=== PATIENT | female | born 1945 | race Caucasian/White ===

== ENCOUNTER 2016-11-09 20:40 | Emergency (ER) | payer MEDICARE ==
[~2016-11-09] VITALS: Ht 162.6 cm; Wt 79.7 kg
[2016-11-09 20:55] VITALS: Ht 162.6 cm; Wt 79.7 kg
--- NOTE | 2016-11-09 21:07 | ERPDOC ---
Departure Disposition Decision Date: November 10, 2016 Disposition Decision Time: 23:45 Disposition: 01 DISCHARGED HOME, SELF-CARE Impression Impression Impression: Primary Impression: Dizziness Additional Impressions: UTI (urinary tract infection) Urinary tract infection type: acute cystitis Hematuria presence: without hematuria Qualified Codes: N30.00 - Acute cystitis without hematuria Volume depletion Severity: Moderate Condition: Improved Seen By: Mid-level only Patient Instructions: Dizziness (ED), Urinary Tract Infection in Women (ED) Problems/Meds/Labs Reviewed?: Yes Medications reviewed and manag: Yes Additional Instructions: Your EKG was normal. Your head CT did not show any acute finding. Your labs indicated mild volume depletion and a urinary tract infection. Take cephalexin 500mg three times daily for 7 days. Follow with with Dr. Fairchild if your symptoms persist or are not improving in the next 2 days. Stay well hydrated, drink water often. Follow treatment plan. Follow up care ordered?: Yes Mental Status: Alert, Oriented Scripts Cephalexin (Cephalexin) 500 Mg Tablet 1 TAB PO TID for 7 Days, #21 TAB Prov: ADRIÁN RAMIREZ APRN 11/10/16 HPI - General Medical General Chief Complaint: Dizzy Stated Complaint: DIZZY,CLAMY Time Seen by Provider: 20:52 Source: patient HPI - General Medical Initial Comments 71 YO F presents to ED with report of onset of feeling lightheaded and dizzy at 1730 today. Developed headache, nausea and felt clammy. Headache, nausea and clamminess have resolved. Patient says she was just sitting at the time of onset. Patient denies any accompanying symptoms (i.e. fever, chills, SOA, CP, vomiting, blurred vision, or ataxia). I asked patient if the room was spinning and initially she answered yes but them said she felt like she was spinning when she moved. Patient arrives hypertensive with BP 193/80. Patient denies any known sick contacts. Associated Symptoms: DENIES: chest pain, cough, diaphoresis, fever/chills, headaches, loss of appetite, malaise, nausea/vomiting, rash, seizure, shortness of breath, syncope, weakness Allergies: Coded Allergies: No Known Allergies (Unverified , 11/09/16) Past History Past Medical History Metabolic: diabetes (type II), hypercholesterolemia, hypertension Cardiac: DENIES: angina Respiratory: DENIES: asthma GI: DENIES: ulcers Female: DENIES: renal insufficiency Neurological: DENIES: seizures Musculoskeletal: DENIES: rheumatoid arthritis Psychological: DENIES: depression Family History Family PMH: FOUND: other (noncontributory) Social History Marital Status: Sexuality: male partner Household Members: spouse Review of Systems Constitutional Constitutional: dizziness, DENIES: chills, fever, weakness Eyes General: DENIES: erythema, exudate Lids/Accessories: DENIES: erythema, swelling Vision: DENIES: blurring ENMT Ears: DENIES: pain Sinuses: DENIES: congestion, rhinorrhea Mouth/Throat: DENIES: sore throat Cardiovascular Cardiac: DENIES: chest pain, murmur Rhythm/Rate: DENIES: palpitations Pulmonary Respiratory: DENIES: cough, dyspnea GI Upper Abdomen: DENIES: nausea, pain, vomiting Lower Abdomen: DENIES: blood in stool, diarrhea, pain General: DENIES: dysuria, pain Musculoskeletal General: DENIES: joint pain, pain, tenderness Integumentary Skin: DENIES: color change, itching, rash Neurological General: DENIES: ataxia, change in strength, numbness, paralysis/paresis, weakness Psychiatric Psychiatric: DENIES: anxiety, depression, nervousness Physical Exam General General Nourishment: well nourished, well developed, no acute distress, adult General Body Habitus: well groomed Vitals and Pain Weight: Kilograms: 79.700 Height (feet): 5 Height (inches): 4.00 Triage Pain Scale: Eyes (brief) Eyes Brief: found: EOMI, PERRL ENMT (brief) ENMT Brief: FOUND: TM clear, TM good light reflex, mucosa moist, NOT FOUND: nasal exudate, nasal swelling, pharnyx erythema Neck (brief) Neck: FOUND: trachea midline, NOT FOUND: adenopathy, spasm, tenderness, thyromegaly Respiratory (brief) Respiratory: FOUND: clear all parnell, equal bilaterally, symmetrical Cardiovascular (brief) Cardiac: FOUND: regular rate, regular rhythm Capillary Refill: <2 sec Pulses: all distal extremities, equal, strong Abdomen (brief) Abdominal Brief: FOUND: bowel normo active x4, soft, NOT FOUND: distended, tender Musculoskeletal (brief) Musculoskeletal Brief: NOT FOUND: deformity, tenderness Integumentary (brief) Integumentary Brief: FOUND: dry, pink, warm Neurologic (brief) Neurological Brief: FOUND: CN w/o gross def to obs, motor-no gross deficits, sensory-no gross deficits Psychiatric (brief) Psychiatric Brief: FOUND: alert, normal affect, oriented Differential Diagnoses Considering: CVA, Hypo/Hyperglycemia, Hypo/Hyperkalemia, Hypo/Hypernatremia, TIA, UTI Considering: Acute NH/Ischemia, Cardiac Dysrhythmia, Orthostatic Hypotension Progress Results/Orders Orders Procedure Category Date Status Time EKG EKG 11/09/16 Taken Cmp - Comprehensive LAB 11/09/16 Complete Metabolic 21:13 Cbc W/Auto LAB 11/09/16 Complete Diff-Reflex Manual 21:13 Troponin I W LAB 11/09/16 Complete Hemolysis Index 21:13 Iv Lock (Ed Only) EDM 11/09/16 Transmitted 21:13 Orthostatic Bp/Pulse EDM 11/09/16 Transmitted 21:13 Normal Saline (Normal PHA 11/09/16 Complete Saline Iv) 22:30 Ct Head W/O Contrast CT 11/09/16 Resulted UA, LAB 11/09/16 Complete Dip&Micro(Complete) & 23:27 Urine Culture MARIBEL 11/09/16 Complete 23:36 Cephalexin Capsule PHA 11/10/16 Complete (Keflex) 00:30 Lab Results Laboratory Tests Test 11/09/16 21:20 11/09/16 23:27 White Blood Count 10.3T/MM3 Red Blood Count 4.15M/MM3 Hemoglobin 11.5GM/DL Hematocrit 35.5% Mean Corpuscular Volume 85.5UM3 Mean Corpuscular Hemoglobin 27.7UUG Mean Corpuscular Hemoglobin Concent 32.4GM/DL RDW Standard Deviation 40.9FL Platelet Count 260T/MM3 Mean Platelet Volume 10.2UM3 Immature Granulocyte % (Auto) 0.1% Neutrophils (%) (Auto) 76.8% Lymphocytes (%) (Auto) 15.0% Monocytes (%) (Auto) 6.3% Eosinophils (%) (Auto) 1.5% Basophils (%) (Auto) 0.3% Absolute Immature Granulocyte (auto 0.01T/MM3 Absolute Neutrophils (auto) 7.9T/MM3 Absolute Lymphocytes (auto) 1.5T/MM3 Absolute Monocytes (auto) 0.7T/MM3 Absolute Eosinophils (auto) 0.2T/MM3 Absolute Basophils (auto) 0.0T/MM3 Turbidity < 20 Sodium Level 145MEQ/L Potassium Level 4.0MEQ/L Chloride Level 104MEQ/L Carbon Dioxide Level 26MEQ/L Anion Gap 15MEQ/L Blood Urea Nitrogen 20.0MG/DL Creatinine 0.9MG/DL Glomerular Filtration Rate Calc 62 BUN/Creatinine Ratio 22RATIO Glucose Level 184MG/DL Calculated Osmolality 287MOSM/KG Calcium Level 10.0MG/DL Total Bilirubin 0.70MG/DL Icterus Index < 2 Aspartate Amino Transf (AST/SGOT) 23U/L Alanine Aminotransferase (ALT/SGPT) 24U/L Alkaline Phosphatase 88U/L Troponin I < 0.012ng/ml Total Protein 7.2G/DL Albumin 4.3G/DL Globulin 2.9G/DL Albumin/Globulin Ratio 1.5RATIO Chemistry Specimen Hemolysis < 15 Urine Collection Type Voided-not cc-midstr Urine Color Yellow Urine Turbidity Clear Urine pH 6.0 Urine Specific [place] 1.010 Urine Protein Negative Urine Glucose (UA) Negative Urine Ketones Negative Urine Blood Negative Urine Nitrite Negative Urine Bilirubin Negative Urine Urobilinogen 0.2EU/DL Urine Leukocyte Esterase 3+ Urine RBC None seen/HPF Urine WBC 20-30/HPF Urine Bacteria None seen Urine Culture Indicated Cult reflexed &setup Medications Current ED Medications Sodium Chloride (Normal Saline IV) 1,000 ml @ 0 mls/hr Q0M ONCE IV Last administered on 11/09/16 22:27; Start 11/09/16 at 22:30; Stop 11/09/16 at 22:31 ; Status DC Cephalexin HCl (Keflex) 500 mg O ONCE PO Last administered on 11/10/16 00:32 ; Start 11/10/16 at 00:30; Stop 11/10/16 at 00:31; Status DC Progress Progress CBC unremarkable CMP unremarkable except for slight elevation in NA and BUN. Troponin < 0.012 UA has 3+ LE with 20-[address]-no acute findings Patient reports feeling "much better after fluids". No longer feeling lightheaded or dizzy. BP improving. I discussed labs, EKG and CT head with patient and her . Patient's symptoms consistent with volume depletion and UTI. I discussed treatment plan, follow up with PCP and return precautions which patient verbalized understanding. EKG EKG : Rate: 60-100 Rhythm: sinus [place]: normal QRS: normal Intervals: normal ST/T: normal Interpreted by: signing physician (Dr. Jackman) CT CT : CT: Head no contrast (no acute intracranial findings) Interpretation: Faxed Report ADRIÁN RAMIREZ APRN November 09, 2016 21:07
[2016-11-09 21:25] LABS: BASOPHILS % (AUTO) 0.3 % (0-2); EOSINOPHILS # (AUTO) 0.2 T/MM3 (0-0.5); EOSINOPHILS % (AUTO) 1.5 % (0-4); HCT - HEMATOCRIT 35.5 % (36-46); HGB - HEMOGLOBIN 11.5 GM/DL (12-16); IMMATURE GRANULOCYTE # (AUTO) 0.01 T/MM3 (0.00-0.03); IMMATURE GRANULOCYTE % (AUTO) 0.1 % (0.0-0.5); LYMPHOCYTES # (AUTO) 1.5 T/MM3 (1-4.8); MEAN CORPUSCULAR HGB 27.7 UUG (26-34); MEAN CORPUSCULAR HGB CONC(MCHC 32.4 GM/DL (31-37); MEAN CORPUSCULAR VOLUME 85.5 UM3 (80-100); MEAN PLATELET VOLUME 10.2 UM3 (9.4-12.4); MONOCYTES # (AUTO) 0.7 T/MM3 (0-0.8); MONOCYTES % (AUTO) 6.3 % (0-9.0); NEUTROPHILS #(AUTO)-ABSOLUTE 7.9 T/MM3 (1.8-7.7); NEUTROPHILS % (AUTO) 76.8 % (33-66); RED BLOOD COUNT 4.15 M/MM3 (4.00-5.20); WBC - WHITE BLOOD COUNT 10.3 T/MM3 (4.5-11.0)
[2016-11-09 22:10] LABS: ALBUMIN 4.3 G/DL (3.5-5.0); ALBUMIN/GLOBULIN RATIO 1.5 RATIO (1.1-2.2); ALKALINE PHOSPHATASE 88 U/L (38-126); ALT (SGPT) 24 U/L (9-52); ANION GAP 15 MEQ/L (5-15); AST (SGOT) 23 U/L (14-36); BUN/CREATININE RATIO 22 RATIO (6-26); CHLORIDE 104 MEQ/L (98-107); CO2 - CARBON DIOXIDE 26 MEQ/L (22-30); CREATININE 0.9 MG/DL (0.7-1.2); GLOMERULAR FILTRATION RATE 62; GLUCOSE 184 MG/DL (65-110); SODIUM 145 MEQ/L (134-144); TOTAL PROTEIN 7.2 G/DL (6.3-8.2)
[2016-11-09] MEDS ORDERED: NORMAL SALINE 1,000 ML IV ONE (22:30)
[2016-11-09] MEDS ORDERED: GLIM2TAB3 PO (22:52)
[2016-11-09] MEDS ORDERED: VIT1TABL PO (22:52)
[2016-11-09] MEDS ORDERED: VITA-321 PO (22:52)
[2016-11-09] MEDS ORDERED: ATOR20TA59 PO (22:52)
[2016-11-09] MEDS ORDERED: CALC-52 PO (22:52)
[2016-11-09 23:27] LABS: BLOOD, URINE NEGATIVE (NEGATIVE); COLOR,URINE YELLOW (YELLOW); LEUKOCYTE ESTERASE ,URINE 3+ (NEGATIVE); NITRITE,URINE NEGATIVE (NEGATIVE); UROBILINOGEN,URINE 0.2 EU/DL (NORMAL)
[2016-11-09 23:35] LABS: BACTERIA,URINE NONE SEEN (NEGATIVE); RBC,URINE NONE SEEN /HPF (0-3); WBC,URINE 20-30 /HPF (0-5)
[2016-11-10] MEDS ORDERED: CEPH500T PO (00:21)
[2016-11-10 00:30] VITALS: BP 156/65; PULSE 68; RESP 18; TEMP 98; O2SAT 97
[2016-11-10] MEDS ORDERED: CEPHALEXIN 500 MG CAPSULE PO ONE (00:30)
[2016-11-10] MEDS ORDERED: SITA1TBM PO (02:20)
--- NOTE | 2016-11-10 09:17 | DI ---
EXAM: CT HEAD W/O CONTRAST COMPARISON: None available. HISTORY: ITS.REASON: dizziness LOCATION OF DICTATION: [facility] [place]CHNIQUE: Without IV contrast, axial images were obtained through the brain and reviewed in brain, soft tissue, bone, and subdural windows. The current CT scan was performed using radiation dose-reduction techniques. FINDINGS: The CSF spaces are prominent likely related to atrophy in keeping with age. Periventricular deep white matter hypodensities are noted likely related to small vessel ischemic disease. The suprasellar cistern and quadrigeminal plate cisterns are intact. The dumont-white junctions are distinct. No sulcal effacement is identified. The basal ganglia, posterior fossa and brainstem region appear unremarkable. There is no evidence for midline shift or mass effect. The midline structures appear unremarkable. No osseous abnormalities are identified. The paranasal sinuses and mastoid air cells are clear. IMPRESSION: 1. Atrophy in keeping with age. 2. Periventricular deep white matter hypodensities are noted likely related to small vessel ischemic disease. NOTE: This study was reviewed via teleradiology by [facility] and a preliminary impression consistent with above findings was conveyed to the ordering clinician immediately after the exam. .
== END 2016-11-10 00:30 | disposition home or self-care (01) ==
LOC: ED 20:40
DX: R42 Dizziness and giddiness (principal); N30.00 Acute cystitis without hematuria; E86.9 Volume depletion, unspecified
CPT/HCPCS: 70450; 80053; 81001; 84484; 85025; 87086; 87147; 87186; 93005; 96360; 99284; A9270; J7030; 36000